=== PATIENT | female | born 1990 | race Native Hawaiian/Other Pacific Islander ===

== ENCOUNTER 2017-10-03 11:24 | Emergency (ER) | payer OTHER ==
--- NOTE | 2017-10-03 12:08 | XRAY Preliminary Report ---
Exam: XR FOOT 3 VIEW LT IMPRESSION: Normal foot radiography. [facility] SITE ID: [id number]
--- NOTE | 2017-10-03 12:10 | XRAY Report ---
EXAM: LEFT FOOT RADIOGRAPHY EXAM DATE: 10/03/2017 11:51 AM. CLINICAL HISTORY: Fall on stairs. Foot and first toe injury COMPARISON: None. TECHNIQUE: 3 views. FINDINGS: Bones: No fractures. A benign bone island is in the calcaneus. Joints: Normal. No subluxations. Soft Tissues: Normal. No soft tissue swelling. IMPRESSION: Normal foot radiography. [facility] Referring Provider Line: [phone] SITE ID: [id number]
--- NOTE | 2017-10-03 13:20 | ED Physician Documentation ---
PD HPI LOWER EXT INJURY - Stated complaint Stated Complaint: L TOE INJ - Chief complaint Chief Complaint: Ext Problem - History obtained from History obtained from: Patient - History of Present Illness PD HPI LOW EXT INJURY LOCATION: Left, Toe (great) Type of injury: Blunt / blow (fell down 4 steps and struck toe as she fell. Denies other injuries.) Where injury occurred: Home Timing - onset: Today Timing - details: Abrupt onset, Still present Worsened by: Moving, Palpating Associated symptoms: Swelling. 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 : None HEENT: None Psych: None Musculoskeletal: None Derm: None - Past Surgical History Past Surgical History: No - Present Medications Home Medications: Ambulatory Orders Medication Instructions Recorded Confirmed Control Pill 1 mg PO DAILY 10/06/16 10/03/17 Multivitamin W/Minerals [Theragran 1 mg PO DAILY 10/06/16 10/03/17 M] - Allergies Allergies/Adverse Reactions: Allergies Allergy/AdvReac Type Severity Reaction Status Date / Time No Known Drug Allergies Allergy Verified 10/03/17 11:33 - Social History Does the pt smoke?: No Smoking Status: Never smoker Does the pt drink ETOH?: Yes Does the pt have substance abuse?: No - Immunizations Immunizations are current?: Yes Immunizations: TDAP current <10years - POLST Patient has POLST: No PD ED PE NORMAL - Vitals Vital signs reviewed: Yes - General General: Alert and oriented X 3, Well developed/nourished - Derm Derm: Normal color, Warm and dry - Extremities Extremities: Other (left great toe with tenderness at base without noted laxity. Swelling noted, but no deformity. Toenial is not injured. ) Results - Vitals Vitals: Oxygen O2 Source Room air - Rads (name of study) toes Radiology: Prelim report reviewed (no fractures) PD MEDICAL DECISION MAKING - ED course Complexity details: reviewed results, considered differential, d/w patient Departure - Departure Disposition: 01 Home, Self Care Clinical Impression: Toe sprain Qualifiers: Encounter type: initial encounter Qualified Code(s): S93.509A - Unspecified sprain of unspecified toe(s), initial encounter Condition: Stable Record reviewed to determine appropriate education?: Yes Instructions: ED Sprain Toe Follow-Up: KRISTINA Strong [Provider Group] Comments: He can tape the toe to support it and also use firm soled shoe. Reduce the pressure on to the big toe as needed when walking. Ibuprofen 3 times a day for the next few days. Add Tylenol if needed. I wrote a note for no vigorous activity such as running and jumping for about 5 days. You could also be without your boot and more comfortable shoe to get in and out of for the first few days as well. Forms: Activity restrictions Discharge Date/Time: 10/03/17 13:53
[2017-10-03] MEDS ORDERED: ACETAMINOPHEN 325 MG TABLET PO STA (13:28)
[2017-10-03] MEDS ORDERED: IBUPROFEN 600 MG TABLET PO STA (13:28)
[2017-10-03] MEDS ORDERED: ACETAMINOPHEN 325 MG TABLET PO ONE (13:41)
[2017-10-03] MEDS ORDERED: IBUPROFEN 600 MG TABLET PO ONE (13:41)
[2017-10-03 13:54] VITALS: BP 132/88
== END 2017-10-03 13:53 | disposition home or self-care (01) ==
LOC: ED 11:24
DX: S93.502A Unspecified sprain of left great toe, initial encounter (principal); W10.9XXA Fall (on) (from) unspecified stairs and steps, initial encounter; W22.8XXA Striking against or struck by other objects, initial encounter; Y92.009 Unspecified place in unspecified non-institutional (private) residence as the place of occurrence of the external cause
CPT/HCPCS: 99282; 99283